=== PATIENT | female | born 2000 | race Caucasian/White ===

== ENCOUNTER 2023-09-12 19:24 | Emergency (ER) | payer SELFPAY ==
[~2023-09-12] VITALS: Ht 167.6 cm; Wt 59.1 kg
[2023-09-12 19:28] VITALS: TEMP 97.9
[2023-09-12] MEDS ORDERED: CEPHALEXIN500 M1 PO (21:01)
[2023-09-12 21:07] VITALS: BP 115/82; PULSE 82
== END 2023-09-12 21:07 | disposition home or self-care (01) ==
LOC: COL.ER 19:24
DX: S61.210A Laceration without foreign body of right index finger without damage to nail, initial encounter (principal); F17.210 Nicotine dependence, cigarettes, uncomplicated; Z23 Encounter for immunization; W26.8XXA Contact with other sharp object(s), not elsewhere classified, initial encounter

== ENCOUNTER 2023-11-09 17:07 | Emergency (ER) | payer MEDICAID ==
[~2023-11-09] VITALS: Ht 165.1 cm; Wt 63.6 kg
[~2023-11-09 17:07] MED LIST: CEPHALEXIN500 M1 PO
[2023-11-09 17:13] VITALS: TEMP 98.1
[2023-11-09] MEDS ORDERED: NS 1,000 ML IV ONE (18:45)
[2023-11-09 19:25] LABS: BASO # 0.1 K/mm3 (0.0-0.2); BASO % 0.4 % (0.0-2.0); EOS # 0.2 K/mm3 (0.0-0.7); EOS % 1.4 % (0.0-4.0); GRAN # 10.9 K/mm3 (1.4-6.5); GRAN % 73.3 % (42.2-75.2); HEMOGLOBIN 12.6 g/dl (12.5-16.0); LYMPH # 2.8 K/mm3 (1.2-3.4); LYMPH % 19.1 % (20.0-51.0); MEAN CELL VOLUME 92 fl (80.0-100.0); MEAN CORPUSCULAR HEMOGLOBIN 31 pg (27-31); MEAN CORPUSCULAR HGB CONC 33 g/dl (33.0-37.0); MEAN PLATELET VOLUME 11.6 fl (7.4-10.4); MONO # 0.8 K/mm3 (0.1-0.6); MONO % 5.3 % (1.7-9.3); PLATELET COUNT 259 K/mm3 (130-400); RED BLOOD COUNT 4.13 M/mm3 (4.10-5.30); REDCELL DISTRIBUTION WIDTH-CV 13.7 % (11.5-14.5)
[2023-11-09 19:49] LABS: ANION GAP 9 mmol/L (7-16); BLOOD UREA NITROGEN 10 mg/dL (7-19); CALCIUM 9.6 mg/dL (8.4-10.2); CARBON DIOXIDE 22 mmol/L (22-29); CHLORIDE 106 mmol/L (98-107); CREATININE, serum 0.65 mg/dL (0.57-1.11); GLUCOSE 77 mg/dL (70-99); MAGNESIUM 1.9 mg/dL (1.6-2.6); POTASSIUM 3.7 mmol/L (3.5-4.5); SODIUM 137 mmol/L (136-145)
[2023-11-09 20:09] LABS: THYROID STIMULATING HORMONE 2.313 uIU/mL (0.350-4.940)
[2023-11-09 20:14] LABS: TROPONIN-I < 0.010 ng/mL (0.00-0.033)
[2023-11-09 20:41] LABS: COLLECTION METHOD CLEAN CATCH
[2023-11-09 21:25] LABS: URINE APPEARANCE Hazy (CLEAR/HAZY); URINE COLOR Yellow (YELLOW)
[2023-11-09 21:26] LABS: MUCOUS Present (NOT PRESENT); SQUAMOUS EPITHELIAL 0-2 /hpf (0-10); URINE BACTERIA Occasional /hpf (NONE SEEN); URINE BLOOD Negative (NEGATIVE); URINE GLUCOSE Negative (NEGATIVE); URINE KETONE Negative (NEGATIVE); URINE NITRATE Negative (NEGATIVE); URINE PROTEIN(semi-quant) Negative (NEGATIVE); URINE RBC None Seen /hpf (0-2); URINE UROBILINOGEN 0.2 E.U/dL (0.2-1.0)
[2023-11-09 21:56] VITALS: BP 100/71; PULSE 76
== END 2023-11-09 21:56 | disposition home or self-care (01) ==
LOC: COL.ER 17:07
PROVIDERS: Internal Medicine
DX: O26.891 Other specified pregnancy related conditions, first trimester (principal); R55 Syncope and collapse; Z3A.08 8 weeks gestation of pregnancy
CPT/HCPCS: J7030

== ENCOUNTER 2023-11-26 11:32 | Emergency (ER) | payer MEDICAID ==
[~2023-11-26] VITALS: Ht 167.6 cm; Wt 65.9 kg
[2023-11-26 11:45] VITALS: TEMP 98.1
[2023-11-26] MEDS ORDERED: PRENATAL TABLET PO (11:50)
[2023-11-26] MEDS ORDERED: NS 1,000 ML IV ONE (13:30)
[2023-11-26] MEDS ORDERED: diphenhydrAMINE 50 MG/ML 1 ML VIAL IV ONE (13:45)
[2023-11-26 13:53] LABS: BASO % 0.3 % (0.0-2.0); EOS # 0.1 K/mm3 (0.0-0.7); EOS % 0.3 % (0.0-4.0); GRAN # 12.3 K/mm3 (1.4-6.5); GRAN % 82.5 % (42.2-75.2); HEMOGLOBIN 13.8 g/dl (12.5-16.0); LYMPH # 1.8 K/mm3 (1.2-3.4); LYMPH % 12.1 % (20.0-51.0); MEAN CELL VOLUME 92 fl (80.0-100.0); MEAN CORPUSCULAR HEMOGLOBIN 31 pg (27-31); MEAN CORPUSCULAR HGB CONC 34 g/dl (33.0-37.0); MEAN PLATELET VOLUME 11.3 fl (7.4-10.4); MONO # 0.7 K/mm3 (0.1-0.6); MONO % 4.4 % (1.7-9.3); PLATELET COUNT 243 K/mm3 (130-400); RED BLOOD COUNT 4.45 M/mm3 (4.10-5.30); REDCELL DISTRIBUTION WIDTH-CV 13.9 % (11.5-14.5)
[2023-11-26 14:12] LABS: ALBUMIN 3.9 gm/dL (3.5-5.0); BILIRUBIN,TOTAL 0.6 mg/dL (0.2-1.2); CALCIUM 9.3 mg/dL (8.4-10.2); CREATININE, serum 0.59 mg/dL (0.57-1.11); POTASSIUM 3.9 mmol/L (3.5-4.5); TOTAL PROTEIN 7.3 gm/dL (6.2-8.1)
[2023-11-26 15:46] LABS: COLLECTION METHOD CLEAN CATCH
[2023-11-26 15:56] LABS: URINE APPEARANCE CLOUDY (CLEAR/HAZY); URINE BLOOD NEGATIVE (NEGATIVE); URINE COLOR YELLOW (YELLOW); URINE GLUCOSE NEGATIVE (NEGATIVE); URINE KETONE TRACE (NEGATIVE); URINE NITRATE NEGATIVE (NEGATIVE); URINE PROTEIN(semi-quant) NEGATIVE (NEGATIVE); URINE UROBILINOGEN 0.2 E.U/dL (0.2-1.0)
[2023-11-26 16:30] VITALS: BP 110/58; PULSE 80
== END 2023-11-26 16:30 | disposition home or self-care (01) ==
LOC: COL.ER 11:32
PROVIDERS: Physician Assistant
DX: O99.351 Diseases of the nervous system complicating pregnancy, first trimester (principal); G44.209 Tension-type headache, unspecified, not intractable; Z3A.10 10 weeks gestation of pregnancy
CPT/HCPCS: J1200; J2765; J7030